=== PATIENT | female | born 1995 | race American Indian/Alaskan Native ===

== ENCOUNTER 2020-03-29 12:26 | Emergency (ER) | payer OTHER ==
[2020-03-29 12:50] VITALS: BP 140/80
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
== END 2020-03-29 14:01 | disposition home or self-care (01) ==
LOC: ED 12:26
DX: M54.6 Pain in thoracic spine (principal); Z79.899 Other long term (current) drug therapy; V49.49XA Driver injured in collision with other motor vehicles in traffic accident, initial encounter; Y93.89 Activity, other specified; Y92.410 Unspecified street and highway as the place of occurrence of the external cause; Y99.8 Other external cause status
CPT/HCPCS: 72070; 72100

== ENCOUNTER 2020-12-29 20:31 | Emergency (ER) | payer MEDICAID, OTHER ==
[2020-12-29 21:09] VITALS: BP 147/65
[2020-12-29] MEDS ORDERED: DICYCLOMINE 20 MG/2 ML INJ IM ONE (22:00)
--- NOTE | 2020-12-29 22:08 | Emergency Department Report ---
ED Abdominal Pain HPI - General Chief Complaint: Abdominal Pain Stated Complaint: AB PAIN/CONSITPATION Time Seen by Provider: 12/29/20 21:19 Source: patient Mode of arrival: Ambulatory Limitations: No Limitations - History of Present Illness Initial Comments: 25-year-old female weeks presents emergency department complaining of having no bowel movement for the next 3 days and has strong suspicion for constipation. Report no diarrhea no bleeding, no fever, chills, sweats chest pain palpitations. No hematuria no dysuria MD Complaint: abdominal pain Location: diffuse Radiation: none Migration to: no migration Severity: mild, moderate Quality: dull Consistency: constant Improves With: nothing Worsens With: nothing Associated Symptoms: constipation. denies: nausea, dysuria, hematemesis, hematuria, anorexia, syncope - Related Data Previous Rx's Medication Instructions Recorded Last Taken Type Ketorolac [Toradol] 10 mg PO Q6H PRN #15 tablet 03/29/20 Unknown Rx methOCARBAMOL [Robaxin TAB] 750 mg PO Q8H PRN #14 tablet 03/29/20 Unknown Rx Lactulose [Cephulac] 30 gm PO Q6HR #450 ml 12/29/20 Unknown Rx Magnesium Hydroxide [Dulcolax] 1,200 mg PO BID #10 tab.chew 12/29/20 Unknown Rx Sodium Phosphate,[facility]-Dibasic 133 ml RC DAILY #1 enema 12/29/20 Unknown Rx [Enema Ready To Use] Allergies Allergy/AdvReac Type Severity Reaction Status Date / Time No Known Allergies Allergy Unverified 03/29/20 12:49 ED Review of Systems ROS: Stated complaint: AB PAIN/CONSITPATION Other details as noted in HPI Comment: All other systems reviewed and negative ED Past Medical Hx - Past Medical History Previous Medical History?: No - Surgical History Past Surgical History?: No - Medications Home Medications: Home Medications Medication Instructions Recorded Confirmed Last Taken Type Ketorolac [Toradol] 10 mg PO Q6H PRN #15 tablet 03/29/20 Unknown Rx methOCARBAMOL [Robaxin TAB] 750 mg PO Q8H PRN #14 tablet 03/29/20 Unknown Rx Lactulose [Cephulac] 30 gm PO Q6HR #450 ml 12/29/20 Unknown Rx Magnesium Hydroxide [Dulcolax] 1,200 mg PO BID #10 tab.chew 12/29/20 Unknown Rx Sodium Phosphate,[facility]-Dibasic 133 ml RC DAILY #1 enema 12/29/20 Unknown Rx [Enema Ready To Use] ED Physical Exam - General Limitations: No Limitations General appearance: alert, in no apparent distress - Head Head exam: Present: atraumatic, normocephalic - Eye Eye exam: Present: normal appearance, PERRL, EOMI Pupils: Present: normal accommodation - ENT ENT exam: Present: normal exam, normal orophraynx, mucous membranes moist, TM's normal bilaterally - Neck Neck exam: Present: normal inspection, full ROM - Respiratory Respiratory exam: Present: normal lung sounds bilaterally. Absent: respiratory distress, wheezes, rales, accessory muscle use, decreased breath sounds, prolonged expiratory - Cardiovascular Cardiovascular Exam: Present: regular rate, normal rhythm. Absent: systolic murmur, diastolic murmur, rubs, gallop - GI/Abdominal GI/Abdominal exam: Present: soft, normal bowel sounds - Extremities Exam Extremities exam: Present: normal inspection - Back Exam Back exam: Present: normal inspection - Neurological Exam Neurological exam: Present: alert, oriented X3 - Psychiatric Psychiatric exam: Present: normal affect, normal mood - Skin Skin exam: Present: warm, dry, intact, normal color. Absent: rash ED Course Vital Signs 12/29/20 21:03 Temperature 97.9 F Pulse Rate 98 H Respiratory 18 Rate Blood Pressure 147/65 O2 Sat by Pulse 100 Oximetry ED Medical Decision Making - EKG Data Interpretation: no acute changes Critical care attestation.: If time is entered above; I have spent that time in minutes in the direct care of this critically ill patient, excluding procedure time. ED Disposition Clinical Impression: Constipation, Abdominal cramping Disposition: 01 HOME / SELF CARE / HOMELESS Is pt being admited?: No Does the pt Need Aspirin: No Condition: Stable Instructions: Constipation, Adult, Abdominal Pain During , Abdominal Pain (ED) Prescriptions: Lactulose [Cephulac] 30 gm PO Q6HR #450 ml Magnesium Hydroxide [Dulcolax] 1,200 mg PO BID #10 tab.chew Sodium Phosphate,[facility]-Dibasic [Enema Ready To Use] 133 ml RC DAILY #1 enema Referrals: PRIMARY CARE,MD [Primary Care Provider] - as needed (Be sure to alert your physician (warehouse delivery manager) of this constipation issue you forgot to mention today. Also alert them of the medications provided to you from the ED. )
== END 2020-12-29 22:44 | disposition home or self-care (01) ==
LOC: ED 20:31
DX: R10.9 Unspecified abdominal pain (principal)
CPT/HCPCS: 96372; 99282; J0500